=== PATIENT | male | born 1985 | race Caucasian/White ===

== ENCOUNTER → 2018-06-11 11:40 | Outpatient (CLI) | payer BC, SELFPAY | PROVIDERS: PCP Nurse Practitioner; Visit Provider Orthopaedic Surgery Orthopaedic Surgery of the Spine | DX: M51.16 Intervertebral disc disorders with radiculopathy, lumbar region (principal); Z53.20 Procedure and treatment not carried out because of patient's decision for unspecified reasons; M48.061 Spinal stenosis, lumbar region without neurogenic claudication; M48.07 Spinal stenosis, lumbosacral region ==

== ENCOUNTER → 2023-08-14 13:53 | Outpatient (CLI) | payer BC, SELFPAY ==
[2023-08-14 14:51] LABS: Influenza A - CEPHEID Flu A NEGATIVE (NEGATIVE); Influenza B - CEPHEID Flu B NEGATIVE (NEGATIVE); Respiratory Syncytial Virus Negative (Negative)
[2023-08-14 15:46] LABS: COVID-19 CEPHEID 4-PLEX PCR Negative (Negative)
== END ==
PROVIDERS: PCP Nurse Practitioner; Visit Provider Nurse Practitioner Family
DX: Z20.822 Contact with and (suspected) exposure to COVID-19 (principal)
CPT/HCPCS: 0241U